=== PATIENT | female | born 1975 | race African-American/Black ===

== ENCOUNTER 2017-07-04 21:38 | Inpatient (IN) | payer OTHER ==
[~2017-07-04] VITALS: Ht 162.6 cm; Wt 52.2 kg
[~2017-07-04 21:38] MED LIST: LEVAQUIN500 MG ORAL; NKM
[2017-07-04] MEDS ORDERED: HYDROmorphone 1mg/ml Carpuject IVP ONE (22:15)
[2017-07-04 22:32] LABS: APPEARANCE,URINE CLEAR; KETONES,URINE NEGATIVE (NEGATIVE); LEUKOCYTE ESTERASE ,URINE 3+ (NEGATIVE); NITRITE,URINE POSITIVE (NEGATIVE); PH,URINE 7 (4.5-8.0); PROTEIN,URINE 2+ (NEGATIVE); UROBILINOGEN,URINE NORMAL MG/DL (0.0-1.0)
[2017-07-04 22:44] LABS: BACTERIA,URINE MODERATE /HPF; SQUAMOUS EPITHELIAL CELL,UR FEW /LPF (NONE/OCC)
[2017-07-04 22:45] LABS: AMORPHOUS SEDIMENT,UR FEW /LPF
[2017-07-04 22:50] LABS: BASOPHILS % (AUTO) 1.7 % (0.0-2.0); EOSINOPHILS % (AUTO) 2.1 % (0.0-3.0); LYMPHOCYTES % (AUTO) 42.3 % (20.0-45.0); MEAN CORPUSCULAR HGB CONC 34.5 G/DL (32.0-36.0); MEAN CORPUSCULAR VOLUME 81 FL (80-99); MEAN PLATELET VOLUME 7.1 FL (6.5-10.1); MONOCYTES % (AUTO) 15.9 % (1.0-10.0); PLATELET COUNT 217 K/UL (150-450); RED BLOOD COUNT 3.97 M/UL (4.20-5.40); RED CELL DISTRIBUTION WIDTH 15.6 % (11.6-14.8); WHITE BLOOD COUNT 5.1 K/UL (4.8-10.8)
[2017-07-04 22:56] LABS: PROTHROMBIN TIME 10.4 SEC (9.30-11.50)
[2017-07-04 22:59] LABS: ALBUMIN/GLOBULIN RATIO 1.3 (1.0-2.7); CALCIUM 9.5 mg/dL (8.6-10.2); CREATININE 1.2 mg/dL (0.5-0.9); GLOMERULAR FILTRATION RATE 59.8 mL/min (>60); TOTAL PROTEIN 7.9 g/dL (6.6-8.7)
[2017-07-05] VITALS (9 sets, daily range): BP systolic 135–170; BP diastolic 75–97
--- NOTE | 2017-07-05 02:05 | Emergency Room Report ---
History of Present Illness General Chief Complaint: Back Pain-No Injury Source: Patient Present Illness HPI Is a 42-year-old female with a history of a staghorn calculus. She presents with left flank pain for the last 2 weeks it worse the last couple days. Subjective fever chills. Has nausea but no vomiting. No diarrhea. Worse with urination. pain is 9/10. Allergies: Coded Allergies: NO KNOWN ALLERGIES (Unverified Allergy, Unknown, 10/24/15) Patient History Past Medical History: see triage record, old chart reviewed Past Surgical History: other Pertinent Family History: none Social History: Denies: smoking Last Menstrual Period: 06/13/17 Now: No Immunizations: other Reviewed Nursing Documentation: PMH: Agreed, PSxH: Agreed Nursing Documentation-PMH Hx Hypertension: Yes Hx Cancer: No Hx Gastrointestinal Problems: No Hx Neurological Problems: No Review of Systems Eye: Denies: eye pain, blurred vision ENT: Denies: ear pain, nose congestion, throat swelling Respiratory: Denies: cough, shortness of breath Cardiovascular: Denies: chest pain, palpitations Gastrointestinal: Denies: abdominal pain, diarrhea, nausea, vomiting Genitourinary: Reports: dysuria, frequency, pain Musculoskeletal: Denies: back pain, joint pain Skin: Denies: rash Neurological: Denies: headache, numbness Endocrine: Denies: increased thirst, increased urine Hematologic/Lymphatic: Denies: easy bruising All Other Systems: negative except mentioned in HPI Physical Exam Vital Signs Date Time Temp Pulse Resp B/P (MAP) Pulse Ox O2 Delivery O2 Flow Rate FiO2 07/04/17 21:55 98.1 60 18 150/87 100 Room Air vitals with high blood pressure Sp02 EP Interpretation: reviewed, normal General Appearance: well appearing, no apparent distress, alert Head: normocephalic, atraumatic Eyes: bilateral eye PERRL, bilateral eye EOMI ENT: hearing grossly normal, normal pharynx Neck: full range of motion, supple, no meningismus Respiratory: chest non-tender, lungs clear, normal breath sounds Cardiovascular #1: regular rate, rhythm, no murmur Gastrointestinal: normal bowel sounds, non tender, no mass, no organomegaly, no bruit, non-distended Genitourinary: CVA tenderness (L) Musculoskeletal: back normal, gait/station normal, normal range of motion Psychiatric: mood/affect normal Skin: warm/dry Medical Decision Making Diagnostic Impression: Primary Impression: Pyelonephritis Additional Impressions: Staghorn kidney stones Anemia Qualified Codes: D64.9 - Anemia, unspecified Proteinuria Qualified Codes: R80.9 - Proteinuria, unspecified ER Course Is a 42-year-old female who has pyelonephritis. She also has a large staghorn Was in the left renal collecting system. Will admit for IV antibiotics and pain control. Because of insurance, will admit to Dr. Miranda. No evidence of sepsis, abscess, acute renal failure to name a few. Lab Results Impression labs unremarkable CT/MRI/US Diagnostic Results CT/MRI/US Diagnostic Results : Imaging Test Ordered: CT abdomen and pelvis Impression Read by radiologist. Large, 7.5 cm staghorn calculus in the left renal collecting system with changes of pyelonephritis. Last Vital Signs Date Time Temp Pulse Resp B/P (MAP) Pulse Ox O2 Delivery O2 Flow Rate FiO2 07/05/17 00:12 98.0 88 18 144/88 100 Room Air Status: improved Disposition: ADMITTED INPATIENT Condition: Serious Referrals: NOT CHOSEN MESHA/,REFERRING (PCP) MARGARITA LO M.D. Jul 05, 2017 02:05
[2017-07-05] MEDS ORDERED: IBUPROFEN600 MG ORAL (03:33)
[2017-07-05] MEDS ORDERED: Nitroglycerin Subl 0.4mg tab (Bottle Of 25) SL PRN (07:00)
[2017-07-05] MEDS ORDERED: Morphine Sulfate 2mg/ml Inj IV PRN (07:00)
[2017-07-05] MEDS ORDERED: Miralax 17gm pkt ORAL PRN (07:00)
[2017-07-05] MEDS ORDERED: Morphine Sulfate 2mg/ml Inj IVP PRN (07:00)
[2017-07-05] MEDS ORDERED: Mylanta II UD 30ml ORAL PRN (07:00)
[2017-07-05] MEDS: Heparin 5000 units/ml inj SUBQ SCH ×2 (08:56→20:52)
--- NOTE | 2017-07-05 09:16 | Diagnostic Imaging Report ---
Indication: Abdominal pain Technique: Continuous helical transaxial imaging of the abdomen and pelvis was obtained from the lung bases to the pubic symphysis. No intravenous contrast was administered. Coronal 2-D reformats were also obtained. Total Dose length Product (DLP): [address] Dose Index Volume (CTDIvol): 10 mGy Comparison: 10/24/15 Findings: Was again there is a very large left staghorn calculus noted. Enlargement of the left kidney with areas of low attenuation representing dilated calyces. There is thinning of portions of the left renal cortex in association with a large staghorn calculus which is likely chronic obstructive. The findings are not significant change compared to last study. There is a relative paucity of intra-abdominal fat. The right kidney is unremarkable. Normal retrocecal appendix is noted. The uterus is demonstrated with triangular low attenuation central focus likely representing the endometrium. This is not evaluated well. The ovaries are not seen. Bladder and gallbladder are nondistended. Solid organs are not adequately evaluated without IV contrast. Impression: Limited study demonstrating a large left staghorn calculus with signs of chronic obstruction including distended calyces and cortical atrophy without significant change from the prior study. No obvious free fluid [facility] has communicated the preliminary results to the Emergency Department. Their findings are largely concordant with this report. The CT scanner at [facility] is accredited by the [employer] and the scans are performed using dose optimization techniques as appropriate to a performed exam including Automatic Exposure control.
[2017-07-05] MEDS: D5 1/2NS 1,000 ML IV SCH ×2 (09:48→23:24)
[2017-07-05] MEDS: cefTRIAXone 1 GM in D5W 55 ML IVPB SCH (09:49)
[2017-07-05 11:31] LABS: APPEARANCE,URINE TURBID; KETONES,URINE 1+ (NEGATIVE); LEUKOCYTE ESTERASE ,URINE 3+ (NEGATIVE); NITRITE,URINE POSITIVE (NEGATIVE); PH,URINE 7 (4.5-8.0); PROTEIN,URINE 1+ (NEGATIVE); UROBILINOGEN,URINE NORMAL MG/DL (0.0-1.0)
[2017-07-05 11:45] LABS: BACTERIA,URINE FEW /HPF; SQUAMOUS EPITHELIAL CELL,UR FEW /LPF (NONE/OCC); WBC,URINE 60-80 /HPF (0 - 2)
--- NOTE | 2017-07-05 20:32 | Consultation ---
Consult Note Consult Note [id number] PRESTON CARRION M.D. Jul 05, 2017 20:32
--- NOTE | 2017-07-05 22:44 | History and Physical ---
History of Present Illness General Date patient seen: Jul 05, 2017 Reason for Hospitalization: Back Pain-No Injury Present Illness Allergies: Coded Allergies: NO KNOWN ALLERGIES (Unverified Allergy, Unknown, 10/24/15) Medication History Scheduled Levofloxacin* (Levaquin*), 500 MG ORAL DAILY Scheduled PRN Ibuprofen* (Motrin*), 400 MG ORAL Q8HR PRN for For Pain, (Reported) Patient History Healthcare decision maker Resuscitation status Full Code Advanced Directive on File Physical Exam Last 24 Hour Vital Signs Date Time Temp Pulse Resp B/P (MAP) Pulse Ox O2 Delivery O2 Flow Rate FiO2 07/05/17 20:00 98.1 62 18 170/97 100 Room Air 07/05/17 18:01 52 147/78 07/05/17 16:15 97.5 55 21 160/93 97 Room Air 07/05/17 12:00 98.8 59 21 157/90 95 Room Air 07/05/17 08:15 97.7 66 21 135/83 97 Room Air 07/05/17 04:00 97.0 61 18 135/75 100 Room Air 07/05/17 03:18 98.0 88 18 138/89 100 Room Air 07/05/17 02:30 98.0 88 18 144/88 100 Room Air 07/05/17 00:12 98.0 88 18 144/88 100 Room Air 07/04/17 22:47 98.0 Intake and Output 07/05/17 07/06/17 19:00 07:00 Intake Total 635 ml Balance 635 ml Intake Oral 0 ml IV Total 635 ml # Voids 1 # Bowel Movements 1 Laboratory Tests Test 07/05/17 09:11 Urine Color Pale yellow Urine Appearance Turbid Urine pH 7 (4.5-8.0) Urine Specific [place] 1.005 (1.005-1.035) Urine Protein 1+ (NEGATIVE) H Urine Glucose (UA) Negative (NEGATIVE) Urine Ketones 1+ (NEGATIVE) H Urine Occult Blood 4+ (NEGATIVE) H Urine Nitrite Positive (NEGATIVE) H Urine Bilirubin Negative (NEGATIVE) Urine Urobilinogen Normal MG/DL (0.0-1.0) Urine Leukocyte Esterase 3+ (NEGATIVE) H Urine RBC 10-15 /HPF (0 - 2) H Urine WBC 60-80 /HPF (0 - 2) H Urine Squamous Epithelial Cells Few /LPF (NONE/OCC) Urine Bacteria Few /HPF (NONE) Height (Feet): 5 Height (Inches): 4.00 Weight (Pounds): 115 Medications Current Medications Medications (Trade) Dose Ordered Sig/Richard Route PRN Reason Start Time Stop Time Status Last Admin Dose Admin Acetaminophen (Tylenol) 650 mg Q4H PRN ORAL fever 07/05/17 07:00 08/04/17 06:59 Al Hydroxide/Mg Hydroxide (Mylanta II) 30 ml Q6H PRN ORAL dyspepsia 07/05/17 07:00 08/04/17 06:59 Ceftriaxone Sodium 1 gm/ Dextrose 55 ml @ 110 mls/hr Q24H IVPB 07/05/17 09:00 07/12/17 08:59 07/05/17 09:49 Dextrose (Dextrose 50%) STAT PRN IV Hypoglycemia 07/05/17 07:00 08/04/17 06:59 Dextrose/Sodium Chloride 1,000 ml @ 75 mls/hr [id number] IV 07/05/17 17:40 08/04/17 17:39 07/05/17 09:48 Diphenhydramine HCl (Benadryl) 25 mg Q6H PRN ORAL Itching/Pruritis 07/05/17 07:00 08/04/17 06:59 Heparin Sodium (Porcine) (Heparin 5000 units/ml) 5,000 units EVERY 12 HOURS SUBQ 07/05/17 09:00 08/04/17 08:59 07/05/17 20:52 Ibuprofen (Advil) 400 mg Q8HR PRN ORAL For Pain 07/05/17 07:00 08/04/17 06:59 Morphine Sulfate (Morphine Sulfate) 2 mg EVERY 4 HOURS PRN IVP severe Pain (Pain Scale 4-6) 07/05/17 07:00 07/12/17 06:59 Morphine Sulfate (Morphine Sulfate) 4 mg EVERY 2 HOURS PRN IV For Pain (7-10) 07/05/17 07:00 07/12/17 06:59 Nitroglycerin (Ntg) 0.4 mg Q5M X 3 DOSES PRN SL Prn Chest Pain 07/05/17 07:00 08/04/17 06:59 Ondansetron HCl (Zofran) 4 mg Q6H PRN IVP Nausea & Vomiting 07/05/17 07:00 08/04/17 06:59 Polyethylene Glycol (Miralax) 17 gm HSPRN PRN ORAL Constipation 07/05/17 07:00 08/04/17 06:59 Temazepam (Restoril) 15 mg HSPRN PRN ORAL Insomnia 07/05/17 07:00 07/12/17 06:59 MARK HUITRON Jul 05, 2017 22:44
[2017-07-06 04:00] VITALS: BP 162/90
[2017-07-06 07:01] LABS: MEAN CORPUSCULAR HGB CONC 33.2 G/DL (32.0-36.0); MEAN CORPUSCULAR VOLUME 82 FL (80-99); PLATELET COUNT 187 K/UL (150-450); RED BLOOD COUNT 4.01 M/UL (4.20-5.40); RED CELL DISTRIBUTION WIDTH 15.4 % (11.6-14.8); WHITE BLOOD COUNT 3.9 K/UL (4.8-10.8)
[2017-07-06 07:10] LABS: ALANINE AMINOTRANSFERASE 22 U/L (3-33); ALBUMIN/GLOBULIN RATIO 1.2 (1.0-2.7); AMYLASE 77 U/L (10-110); ANION GAP 12 (5-15); ASPARTATE AMINO TRANSFERASE 27 U/L (5-40); CALCIUM 9.2 mg/dL (8.6-10.2); CARBON DIOXIDE 26 mEQ/L (20-30); CHLORIDE 104 mEQ/L (98-107); CREATININE 0.9 mg/dL (0.5-0.9); GLOMERULAR FILTRATION RATE > 60 mL/min (>60); HEMOLYSIS 0; LIPASE 17 U/L (< 60); POTASSIUM 3.7 mEQ/L (3.4-4.9); SODIUM 142 mEQ/L (135-145); TOTAL PROTEIN 6.9 g/dL (6.6-8.7)
[2017-07-06 08:15] VITALS: BP 155/96
[2017-07-06] MEDS: Heparin 5000 units/ml inj SUBQ SCH ×2 (08:38→20:56)
[2017-07-06] MEDS: cefTRIAXone 1 GM in D5W 55 ML IVPB SCH (08:38)
[2017-07-06 09:14] LABS: LYMPHOCYTES % (MANUAL) 68 % (20-45); NEUTROPHILS % (MANUAL) 22 % (45-75); TOTAL CELLS COUNTED 100
[2017-07-06 09:15] LABS: ANISOCYTOSIS 1+; BAND NEUTROPHILS % (MANUAL) 0 % (0-8); BASOPHILS % (MANUAL) 0 % (0-2); EOSINOPHILS % (MANUAL) 0 % (0-3); HYPOCHROMASIA 1+; PLATELET ESTIMATE ADEQUATE; PLATELET MORPHOLOGY NORMAL
[2017-07-06 12:11] VITALS: BP 161/90
--- NOTE | 2017-07-06 14:03 | Consultation ---
DATE OF CONSULTATION: INFECTIOUS DISEASES CONSULT CONSULTING PHYSICIAN: Haim Wilkinson M.D. REFERRING PHYSICIAN: Katerina Miranda M.D. REASON FOR CONSULTATION: Evaluation of the patient for UTI and antibiotic management. HISTORY OF PRESENT ILLNESS: The patient is a 42-year-old female with multiple medical problems as listed below, who has been admitted to this medical center due to dysuria. The patient was admitted with the impression of urinary tract infection. An Infectious Diseases consultation has been requested for further evaluation of the patient's antibiotic management. The patient is complaining of having left-sided flank tenderness. PAST MEDICAL HISTORY: 1. History of pyelonephritis in the past. 2. History of left staghorn kidney. 3. History of renal colic. 4. History of multiple urinary tract infections. MEDICATIONS: On IV Rocephin. ALLERGIES: No known drug allergies. SOCIAL HISTORY: Negative for alcohol or drug use except using recreational marijuana. FAMILY HISTORY: Noncontributory. REVIEW OF SYSTEMS: A 10-point review was done and except what is mentioned above has been negative. PHYSICAL EXAMINATION: VITAL SIGNS: Temperature 98.1 degrees, blood pressure 170/97, pulse 86, and respiratory rate 18. HEENT: No pale conjunctivae. No icterus. NECK: No lymphadenopathy. CHEST: Clear. HEART: S1 and S2. ABDOMEN: Soft. The patient has mild left flank tenderness. EXTREMITIES: No cyanosis at this time. NEUROLOGIC: Awake and alert. LABORATORY AND DIAGNOSTIC DATA: White blood cells 5, hemoglobin 11, and platelets 217,000. UA, 60 to 80 white blood cells, 10 to 15 red blood cells. BUN 11 and creatinine 1.2. ALT, AST, and alkaline phosphatase are unremarkable. Cultures are pending. CT of the abdomen with pelvis showed a large left obstruction. ASSESSMENT: The patient is a 42-year-old female, who came to the hospital with a chief complaint of left flank tenderness and dysuria, possible urinary tract infection and superimposing the patient's renal colic. The patient would benefit from antibiotic treatment. Also, rule out bacteremia. PLAN: 1. We will continue the patient on IV Rocephin. 2. Monitor CBC. 3. Monitor BMP. 4. Monitor cultures (blood and urine). 5. We will recommend Urology recommendation for further evaluation and intervention. 6. Based on the patient's clinical course and labs, we will do further recommendations. Thank you, Dr. Miranda, for allowing me to participate in the care of this patient. I will follow the patient with you during this hospitalization. Haim Wilkinson M.D. DR: JUANITA JOB#: [id number] CC:
--- NOTE | 2017-07-06 14:39 | Pulmonology Progress Note ---
Assessment/Plan Problems: (1) Staghorn kidney stones (2) Pyelonephritis Assessment/Plan iv abx cultures pending urology called dc when ok with ID and urology Subjective ROS Limited/Unobtainable: No Interval Events: no new complains Allergies: Coded Allergies: NO KNOWN ALLERGIES (Unverified Allergy, Unknown, 10/24/15) Objective Last 24 Hour Vital Signs Date Time Temp Pulse Resp B/P (MAP) Pulse Ox O2 Delivery O2 Flow Rate FiO2 07/06/17 13:28 161/90 07/06/17 12:11 97.7 55 20 161/90 97 Room Air 07/06/17 08:15 97.9 58 21 155/96 97 Room Air 07/06/17 04:00 97.7 50 19 162/90 100 Room Air 07/05/17 23:00 160/88 07/05/17 20:00 98.1 62 18 170/97 100 Room Air 07/05/17 18:01 52 147/78 07/05/17 16:15 97.5 55 21 160/93 97 Room Air Intake and Output 07/06/17 07/07/17 19:00 07:00 Intake Total 480 ml Balance 480 ml Intake Oral 480 ml General Appearance: WD/WN HEENT: normocephalic, atraumatic Respiratory/Chest: chest wall non-tender, lungs clear Breasts: no masses Cardiovascular: normal peripheral pulses, normal rate Abdomen: normal bowel sounds, soft, non tender, no organomegaly Extremities: no clubbing Skin: no rash Microbiology Date/Time Source Procedure Growth Status 07/05/17 09:11 Straight Cath Urine Culture - Preliminary NO GROWTH Resulted 07/04/17 22:00 Urine,Clean Catch Urine Culture - Preliminary Resulted Laboratory Tests 07/06/17 05:40: White Blood Count 3.9L, Red Blood Count 4.01L, Hemoglobin 10.8L, Hematocrit 32.7L, Mean Corpuscular Volume 82, Mean Corpuscular Hemoglobin 27.0, Mean Corpuscular Hemoglobin Concent 33.2, Red Cell Distribution Width 15.4H, Platelet Count 187, Mean Platelet Volume 7.0, Neutrophils (%) (Auto) , Lymphocytes (%) (Auto) , Monocytes (%) (Auto) , Eosinophils (%) (Auto) , Basophils (%) (Auto) , Differential Total Cells Counted 100, Neutrophils % ( Manual) 22L, Lymphocytes % (Manual) 68H, Monocytes % (Manual) 10, Eosinophils % (Manual) 0, Basophils % (Manual) 0, Band Neutrophils 0, Platelet Estimate Adequate, Platelet Morphology Normal, Hypochromasia 1+, Anisocytosis 1+, Activated Partial Thromboplast Time 26, Sodium Level 142, Potassium Level 3.7, Chloride Level 104, Carbon Dioxide Level 26, Anion Gap 12, Blood Urea Nitrogen 6L, Creatinine 0.9, Estimat Glomerular Filtration Rate > 60, Glucose Level 91, Calcium Level 9.2, Total Bilirubin 0.4, Aspartate Amino Transf (AST/SGOT) 27, Alanine Aminotransferase (ALT/SGPT) 22, Alkaline Phosphatase 47, Total Protein 6.9, Albumin 3.8, Globulin 3.1, Albumin/Globulin Ratio 1.2, Amylase Level 77, Lipase 17 Current Medications Medications (Trade) Dose Ordered Sig/Richard Route PRN Reason Start Time Stop Time Status Last Admin Dose Admin Acetaminophen (Tylenol) 650 mg Q4H PRN ORAL fever 07/05/17 07:00 08/04/17 06:59 Al Hydroxide/Mg Hydroxide (Mylanta II) 30 ml Q6H PRN ORAL dyspepsia 07/05/17 07:00 08/04/17 06:59 Ceftriaxone Sodium 1 gm/ Dextrose 55 ml @ 110 mls/hr Q24H IVPB 07/05/17 09:00 07/12/17 08:59 07/06/17 08:38 Clonidine HCl (Catapres) 0.1 mg Q4H PRN ORAL For High Blood Pressure 07/06/17 07:00 08/05/17 06:59 07/06/17 13:28 Dextrose (Dextrose 50%) STAT PRN IV Hypoglycemia 07/05/17 07:00 08/04/17 06:59 Dextrose/Sodium Chloride 1,000 ml @ 75 mls/hr [id number] IV 07/05/17 17:40 08/04/17 17:39 07/05/17 23:24 Diphenhydramine HCl (Benadryl) 25 mg Q6H PRN ORAL Itching/Pruritis 07/05/17 07:00 08/04/17 06:59 Heparin Sodium (Porcine) (Heparin 5000 units/ml) 5,000 units EVERY 12 HOURS SUBQ 07/05/17 09:00 08/04/17 08:59 07/06/17 08:38 Ibuprofen (Advil) 400 mg Q8HR PRN ORAL For Pain 07/05/17 07:00 08/04/17 06:59 07/05/17 23:21 Morphine Sulfate (Morphine Sulfate) 2 mg EVERY 4 HOURS PRN IVP severe Pain (Pain Scale 4-6) 07/05/17 07:00 07/12/17 06:59 Morphine Sulfate (Morphine Sulfate) 4 mg EVERY 2 HOURS PRN IV For Pain (7-10) 07/05/17 07:00 07/12/17 06:59 Nitroglycerin (Ntg) 0.4 mg Q5M X 3 DOSES PRN SL Prn Chest Pain 07/05/17 07:00 08/04/17 06:59 Ondansetron HCl (Zofran) 4 mg Q6H PRN IVP Nausea & Vomiting 07/05/17 07:00 08/04/17 06:59 Polyethylene Glycol (Miralax) 17 gm HSPRN PRN ORAL Constipation 07/05/17 07:00 08/04/17 06:59 Temazepam (Restoril) 15 mg HSPRN PRN ORAL Insomnia 07/05/17 07:00 07/12/17 06:59 MARK HUITRON Jul 06, 2017 14:39
[2017-07-06 15:32] VITALS: BP 156/96
--- NOTE | 2017-07-06 18:05 | Infectious Diseases Prog Note ---
Subjective Allergies: Coded Allergies: NO KNOWN ALLERGIES (Unverified Allergy, Unknown, 10/24/15) Objective Vital Signs Last 24 Hour Vital Signs Date Time Temp Pulse Resp B/P (MAP) Pulse Ox O2 Delivery O2 Flow Rate FiO2 07/06/17 16:02 64 156/96 07/06/17 15:32 97.9 64 21 156/96 100 Room Air 07/06/17 13:28 161/90 07/06/17 12:11 97.7 55 20 161/90 97 Room Air 07/06/17 08:15 97.9 58 21 155/96 97 Room Air 07/06/17 04:00 97.7 50 19 162/90 100 Room Air 07/05/17 23:00 160/88 07/05/17 20:00 98.1 62 18 170/97 100 Room Air Height (Feet): 5 Height (Inches): 4.00 Weight (Pounds): 115 Microbiology Date/Time Source Procedure Growth Status 07/05/17 09:11 Straight Cath Urine Culture - Preliminary NO GROWTH Resulted 07/04/17 22:00 Urine,Clean Catch Urine Culture - Preliminary Resulted Laboratory Tests Test 07/06/17 05:40 White Blood Count 3.9 K/UL (4.8-10.8) L Red Blood Count 4.01 M/UL (4.20-5.40) L Hemoglobin 10.8 G/DL (12.0-16.0) L Hematocrit 32.7 % (37.0-47.0) L Mean Corpuscular Volume 82 FL (80-99) Mean Corpuscular Hemoglobin 27.0 PG (27.0-31.0) Mean Corpuscular Hemoglobin Concent 33.2 G/DL (32.0-36.0) Red Cell Distribution Width 15.4 % (11.6-14.8) H Platelet Count 187 K/UL (150-450) Mean Platelet Volume 7.0 FL (6.5-10.1) Neutrophils (%) (Auto) % (45.0-75.0) Lymphocytes (%) (Auto) % (20.0-45.0) Monocytes (%) (Auto) % (1.0-10.0) Eosinophils (%) (Auto) % (0.0-3.0) Basophils (%) (Auto) % (0.0-2.0) Differential Total Cells Counted 100 Neutrophils % (Manual) 22 % (45-75) L Lymphocytes % (Manual) 68 % (20-45) H Monocytes % (Manual) 10 % (1-10) Eosinophils % (Manual) 0 % (0-3) Basophils % (Manual) 0 % (0-2) Band Neutrophils 0 % (0-8) Platelet Estimate Adequate Platelet Morphology Normal Hypochromasia 1+ Anisocytosis 1+ Activated Partial Thromboplast Time 26 SEC (23-33) Sodium Level 142 mEQ/L (135-145) Potassium Level 3.7 mEQ/L (3.4-4.9) Chloride Level 104 mEQ/L (98-107) Carbon Dioxide Level 26 mEQ/L (20-30) Anion Gap 12 (5-15) Blood Urea Nitrogen 6 mg/dL (7-23) L Creatinine 0.9 mg/dL (0.5-0.9) Estimat Glomerular Filtration Rate > 60 mL/min (>60) Glucose Level 91 mg/dL (74-106) Calcium Level 9.2 mg/dL (8.6-10.2) Total Bilirubin 0.4 mg/dL (0.0-1.2) Aspartate Amino Transf (AST/SGOT) 27 U/L (5-40) Alanine Aminotransferase (ALT/SGPT) 22 U/L (3-33) Alkaline Phosphatase 47 U/L (35-104) Total Protein 6.9 g/dL (6.6-8.7) Albumin 3.8 g/dL (3.5-5.2) Globulin 3.1 g/dL Albumin/Globulin Ratio 1.2 (1.0-2.7) Amylase Level 77 U/L (10-110) Lipase 17 U/L (< 60) Current Medications Medications (Trade) Dose Ordered Sig/Richard Route PRN Reason Start Time Stop Time Status Last Admin Dose Admin Acetaminophen (Tylenol) 650 mg Q4H PRN ORAL fever 07/05/17 07:00 08/04/17 06:59 Al Hydroxide/Mg Hydroxide (Mylanta II) 30 ml Q6H PRN ORAL dyspepsia 07/05/17 07:00 08/04/17 06:59 Amlodipine Besylate (Norvasc) 5 mg EVERY 12 HOURS ORAL 07/06/17 15:00 08/05/17 14:59 07/06/17 16:02 Ceftriaxone Sodium 1 gm/ Dextrose 55 ml @ 110 mls/hr Q24H IVPB 07/05/17 09:00 07/12/17 08:59 07/06/17 08:38 Clonidine HCl (Catapres) 0.1 mg Q4H PRN ORAL For High Blood Pressure 07/06/17 07:00 08/05/17 06:59 07/06/17 13:28 Dextrose (Dextrose 50%) STAT PRN IV Hypoglycemia 07/05/17 07:00 08/04/17 06:59 Dextrose/Sodium Chloride 1,000 ml @ 75 mls/hr [id number] IV 07/05/17 17:40 08/04/17 17:39 07/05/17 23:24 Diphenhydramine HCl (Benadryl) 25 mg Q6H PRN ORAL Itching/Pruritis 07/05/17 07:00 08/04/17 06:59 Heparin Sodium (Porcine) (Heparin 5000 units/ml) 5,000 units EVERY 12 HOURS SUBQ 07/05/17 09:00 08/04/17 08:59 07/06/17 08:38 Ibuprofen (Advil) 400 mg Q8HR PRN ORAL For Pain 07/05/17 07:00 08/04/17 06:59 07/05/17 23:21 Morphine Sulfate (Morphine Sulfate) 2 mg EVERY 4 HOURS PRN IVP severe Pain (Pain Scale 4-6) 07/05/17 07:00 07/12/17 06:59 Morphine Sulfate (Morphine Sulfate) 4 mg EVERY 2 HOURS PRN IV For Pain (7-10) 07/05/17 07:00 07/12/17 06:59 Nitroglycerin (Ntg) 0.4 mg Q5M X 3 DOSES PRN SL Prn Chest Pain 07/05/17 07:00 08/04/17 06:59 Ondansetron HCl (Zofran) 4 mg Q6H PRN IVP Nausea & Vomiting 07/05/17 07:00 08/04/17 06:59 Polyethylene Glycol (Miralax) 17 gm HSPRN PRN ORAL Constipation 07/05/17 07:00 08/04/17 06:59 Temazepam (Restoril) 15 mg HSPRN PRN ORAL Insomnia 07/05/17 07:00 9/5/17 06:59 PRESTON CARRION M.D. Jul 06, 2017 18:05
[2017-07-06 20:39] VITALS: BP 148/79
[2017-07-06] MEDS: D5 1/2NS 1,000 ML IV SCH (20:49)
--- NOTE | 2017-07-06 21:27 | Infectious Diseases Prog Note ---
Assessment/Plan Assessment/Plan A: UTI left flank tenderness and dysuria Ro bacteremia. History of pyelonephritis in the past. History of left staghorn kidney. History of renal colic. History of multiple urinary tract infections. PLAN: will continue the patient on IV Rocephin d# 2 / , plan of DC depends on the final UCx report Monitor CBC Monitor BMP. Monitor cultures (blood and urine). Urology recommendation fup : P Subjective Constitutional: Denies: no symptoms, fever, chills, fatigue, anorexia, drenching sweats, other Allergies: Coded Allergies: NO KNOWN ALLERGIES (Unverified Allergy, Unknown, 10/24/15) Objective Vital Signs Last 24 Hour Vital Signs Date Time Temp Pulse Resp B/P (MAP) Pulse Ox O2 Delivery O2 Flow Rate FiO2 07/06/17 20:50 65 148/79 07/06/17 20:39 97.9 65 18 148/79 100 Room Air 07/06/17 16:02 64 156/96 07/06/17 15:32 97.9 64 21 156/96 100 Room Air 07/06/17 13:28 161/90 07/06/17 12:11 97.7 55 20 161/90 97 Room Air 07/06/17 08:15 97.9 58 21 155/96 97 Room Air 07/06/17 04:00 97.7 50 19 162/90 100 Room Air 07/05/17 23:00 160/88 Height (Feet): 5 Height (Inches): 4.00 Weight (Pounds): 115 HEENT: anicteric Respiratory/Chest: no respiratory distress Cardiovascular: regularly irregular Abdomen: no organomegaly Microbiology Date/Time Source Procedure Growth Status 07/05/17 09:11 Straight Cath Urine Culture - Preliminary NO GROWTH Resulted 07/04/17 22:00 Urine,Clean Catch Urine Culture - Preliminary Resulted Laboratory Tests Test 07/06/17 05:40 White Blood Count 3.9 K/UL (4.8-10.8) L Red Blood Count 4.01 M/UL (4.20-5.40) L Hemoglobin 10.8 G/DL (12.0-16.0) L Hematocrit 32.7 % (37.0-47.0) L Mean Corpuscular Volume 82 FL (80-99) Mean Corpuscular Hemoglobin 27.0 PG (27.0-31.0) Mean Corpuscular Hemoglobin Concent 33.2 G/DL (32.0-36.0) Red Cell Distribution Width 15.4 % (11.6-14.8) H Platelet Count 187 K/UL (150-450) Mean Platelet Volume 7.0 FL (6.5-10.1) Neutrophils (%) (Auto) % (45.0-75.0) Lymphocytes (%) (Auto) % (20.0-45.0) Monocytes (%) (Auto) % (1.0-10.0) Eosinophils (%) (Auto) % (0.0-3.0) Basophils (%) (Auto) % (0.0-2.0) Differential Total Cells Counted 100 Neutrophils % (Manual) 22 % (45-75) L Lymphocytes % (Manual) 68 % (20-45) H Monocytes % (Manual) 10 % (1-10) Eosinophils % (Manual) 0 % (0-3) Basophils % (Manual) 0 % (0-2) Band Neutrophils 0 % (0-8) Platelet Estimate Adequate Platelet Morphology Normal Hypochromasia 1+ Anisocytosis 1+ Activated Partial Thromboplast Time 26 SEC (23-33) Sodium Level 142 mEQ/L (135-145) Potassium Level 3.7 mEQ/L (3.4-4.9) Chloride Level 104 mEQ/L (98-107) Carbon Dioxide Level 26 mEQ/L (20-30) Anion Gap 12 (5-15) Blood Urea Nitrogen 6 mg/dL (7-23) L Creatinine 0.9 mg/dL (0.5-0.9) Estimat Glomerular Filtration Rate > 60 mL/min (>60) Glucose Level 91 mg/dL (74-106) Calcium Level 9.2 mg/dL (8.6-10.2) Total Bilirubin 0.4 mg/dL (0.0-1.2) Aspartate Amino Transf (AST/SGOT) 27 U/L (5-40) Alanine Aminotransferase (ALT/SGPT) 22 U/L (3-33) Alkaline Phosphatase 47 U/L (35-104) Total Protein 6.9 g/dL (6.6-8.7) Albumin 3.8 g/dL (3.5-5.2) Globulin 3.1 g/dL Albumin/Globulin Ratio 1.2 (1.0-2.7) Amylase Level 77 U/L (10-110) Lipase 17 U/L (< 60) Current Medications Medications (Trade) Dose Ordered Sig/Richard Route PRN Reason Start Time Stop Time Status Last Admin Dose Admin Acetaminophen (Tylenol) 650 mg Q4H PRN ORAL fever 07/05/17 07:00 08/04/17 06:59 Al Hydroxide/Mg Hydroxide (Mylanta II) 30 ml Q6H PRN ORAL dyspepsia 07/05/17 07:00 08/04/17 06:59 Amlodipine Besylate (Norvasc) 5 mg EVERY 12 HOURS ORAL 07/06/17 15:00 08/05/17 14:59 07/06/17 20:50 Ceftriaxone Sodium 1 gm/ Dextrose 55 ml @ 110 mls/hr Q24H IVPB 07/05/17 09:00 07/12/17 08:59 07/06/17 08:38 Clonidine HCl (Catapres) 0.1 mg Q4H PRN ORAL For High Blood Pressure 07/06/17 07:00 08/05/17 06:59 07/06/17 13:28 Dextrose (Dextrose 50%) STAT PRN IV Hypoglycemia 07/05/17 07:00 08/04/17 06:59 Dextrose/Sodium Chloride 1,000 ml @ 75 mls/hr [id number] IV 07/05/17 17:40 08/04/17 17:39 07/06/17 20:49 Diphenhydramine HCl (Benadryl) 25 mg Q6H PRN ORAL Itching/Pruritis 07/05/17 07:00 08/04/17 06:59 Heparin Sodium (Porcine) (Heparin 5000 units/ml) 5,000 units EVERY 12 HOURS SUBQ 07/05/17 09:00 08/04/17 08:59 07/06/17 20:56 Ibuprofen (Advil) 400 mg Q8HR PRN ORAL For Pain 07/05/17 07:00 08/04/17 06:59 07/05/17 23:21 Morphine Sulfate (Morphine Sulfate) 2 mg EVERY 4 HOURS PRN IVP severe Pain (Pain Scale 4-6) 07/05/17 07:00 07/12/17 06:59 Morphine Sulfate (Morphine Sulfate) 4 mg EVERY 2 HOURS PRN IV For Pain (7-10) 07/05/17 07:00 07/12/17 06:59 Nitroglycerin (Ntg) 0.4 mg Q5M X 3 DOSES PRN SL Prn Chest Pain 07/05/17 07:00 08/04/17 06:59 Ondansetron HCl (Zofran) 4 mg Q6H PRN IVP Nausea & Vomiting 07/05/17 07:00 08/04/17 06:59 Polyethylene Glycol (Miralax) 17 gm HSPRN PRN ORAL Constipation 07/05/17 07:00 08/04/17 06:59 Temazepam (Restoril) 15 mg HSPRN PRN ORAL Insomnia 07/05/17 07:00 07/12/17 06:59 PRESTON CARRION M.D. Jul 06, 2017 21:27
[2017-07-07 00:01] VITALS: BP 149/84
[2017-07-07 04:00] VITALS: BP 137/86
[2017-07-07 08:00] VITALS: BP 133/92
[2017-07-07] MEDS: Heparin 5000 units/ml inj SUBQ SCH (09:14)
[2017-07-07] MEDS: D5 1/2NS 1,000 ML IV SCH (09:16)
[2017-07-07] MEDS: cefTRIAXone 1 GM in D5W 55 ML IVPB SCH (09:16)
[2017-07-07 12:00] VITALS: BP 151/89
[2017-07-07] MEDS ORDERED: BACTRIM DS TAB1 EAC1 ORAL (14:17)
--- NOTE | 2017-07-07 15:04 | Infectious Diseases Prog Note ---
Assessment/Plan Assessment/Plan Assessment: UTI secondary to L sided chronic 7.5cm staghorn calculi present for >3 years. left flank tenderness and dysuria blood cx negative at 48 hrs for bacteremia. History of pyelonephritis in the past. Castillo sensitive Klebsiella in 2010, and ESBL E coli (sens to FQ and tmp/smx) in 2014, treated with cipro. 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 History of renal colic. History of multiple urinary tract infections. PLAN: on IV Rocephin d# 3 with good clinical response. ucx is negative so far, blood cx negative at 48 hrs. based on prior Ucx ( 2010, 2014), and 2015 FQ dosing, the most likely effective regimen is tmp/smx. Her SCr has normalized, and although tmp can inhibit prox tubule secretion of Cr, she should tolerate it fine now that her N/V has resolved and she's no longer dehydrated. Okay to switch to Bactrim DS one tab twice daily to complete 14 days of treatment. paper script provided to nurse. s/p urgent urology consultation. she'll need outpatient f/u non urgently to consider whether she should have renal mag lasix scan and then consider nephrectomy to reduce her risk of infections in the future. Subjective Constitutional: Reports: no symptoms Respiratory: Reports: no symptoms Cardiovascular: Reports: no symptoms Genitourinary: Reports: no symptoms Skin: Reports: no symptoms Musculoskeletal: Reports: no symptoms Allergies: Coded Allergies: NO KNOWN ALLERGIES (Unverified Allergy, Unknown, 10/24/15) Subjective patient feels better since admission with resolution of L sided flank pain and N /V. remains afebrile. tolerating PO. Objective Vital Signs Last 24 Hour Vital Signs Date Time Temp Pulse Resp B/P (MAP) Pulse Ox O2 Delivery O2 Flow Rate FiO2 07/07/17 12:00 97.9 86 20 151/89 100 Room Air 07/07/17 09:14 71 133/92 07/07/17 08:00 98.1 71 18 133/92 100 Room Air 07/07/17 04:00 97.9 65 18 137/86 100 Room Air 07/07/17 00:01 98.1 54 19 149/84 100 Room Air 07/06/17 20:50 65 148/79 07/06/17 20:39 97.9 65 18 148/79 100 Room Air 07/06/17 16:02 64 156/96 07/06/17 15:32 97.9 64 21 156/96 100 Room Air Height (Feet): 5 Height (Inches): 4.00 Weight (Pounds): 115 Objective HEENT: anicteric Respiratory/Chest: no respiratory distress Cardiovascular: regularly irregular Abdomen: no organomegaly. nttp. no residual L flank pain. ext: good skin turgor Microbiology Date/Time Source Procedure Growth Status 07/05/17 22:50 Blood Blood Culture - Preliminary NO GROWTH AFTER 24 HOURS Resulted 07/05/17 22:45 Blood Blood Culture - Preliminary NO GROWTH AFTER 24 HOURS Resulted 07/05/17 09:11 Straight Cath Urine Culture - Preliminary NO GROWTH AFTER 24 HOURS Resulted 07/04/17 22:00 Urine,Clean Catch Urine Culture - Preliminary Resulted RADIOLOGY Patient : Hank KIDD Referring Physician: ZANE BULL D.O. ID Number: [id number] Service Date: 10/24/15 : 1975 Report Date: 10/24/15 Gender: F Accession No.: [id number] Location: Procedure: CT Abdomen Pelvis WO Contrast CT Abdomen/Pelvis without Intravenous Contrast INDICATION: Abdominal pain COMPARISON: CT abdomen/pelvis from 05/22/12 TECHNIQUE: Serial axial images were obtained from the lung bases through the symphysis pubis. Coronal and sagittal reformats were obtained. Dose Estimate: Total DLP 485 mGycm CTD/vol 0.15, 9.87 mGy FINDINGS: Lack of intravenous and oral contrast compromises evaluation of the bowel and could obscure an isodense lesion. The visualized lung bases are clear. The heart is normal in size. The liver is normal in density and contour. There is no intra- or extrahepatic biliary ductal dilation. There is no gallbladder wall thickening or pericholecystic fluid. The spleen is normal in size. The pancreas is normal with no pancreatic ductal dilatation. The adrenal glands are normal. The right kidney is normal in size and contour with no evidence of obstruction. There are no right renal calculi. The left kidney is enlarged and abnormal in morphology. There is a large left renal staghorn calculus with 2 main fragments (approximately 1350 Hounsfield units), overall increased in size from the prior study. The calyces are markedly dilated, increased from the prior study. There is interval increase in left renal cortical thinning that is now moderate to severe. The stomach is collapsed. The small and large bowel are normally distended and thin-walled. There is no mesenteric or retroperitoneal lymphadenopathy. There is no intraperitoneal free air. There may be trace pelvic free fluid. The urinary bladder is within normal limits. The uterus is grossly unremarkable. There are no adnexal masses. The visualized aorta is normal in caliber. No suspicious osseous lesions. IMPRESSION: Interval increase in size of left renal staghorn calculus with grossly abnormal left kidney, marked calyceal dilatation, and moderate to severe renal cortical thinning, compatible with xanthogranulomatous pyelonephritis. Muscle trace pelvic free fluid, nonspecific. Patient : Hank KIDD Referring Physician: MARAGRITA LO M.D. ID Number: [id number] Service Date: 07/04/17 : 1975 Report Date: 07/04/17 Gender: F Accession No.: [id number] Location: Procedure: CT Abdomen Pelvis WO Contrast Indication: Abdominal pain Technique: Continuous helical transaxial imaging of the abdomen and pelvis was obtained from the lung bases to the pubic symphysis. No intravenous contrast was administered. Coronal 2-D reformats were also obtained. Total Dose length Product (DLP): [address] Dose Index Volume (CTDIvol): 10 mGy Comparison: 10/24/15 Findings: Was again there is a very large left staghorn calculus noted. Enlargement of the left kidney with areas of low attenuation representing dilated calyces. There is thinning of portions of the left renal cortex in association with a large staghorn calculus which is likely chronic obstructive. The findings are not significant change compared to last study. There is a relative paucity of intra-abdominal fat. The right kidney is unremarkable. Normal retrocecal appendix is noted. The uterus is demonstrated with triangular low attenuation central focus likely representing the endometrium. This is not evaluated well. The ovaries are not seen. Bladder and gallbladder are nondistended. Solid organs are not adequately evaluated without IV contrast. Impression: Limited study demonstrating a large left staghorn calculus with signs of chronic obstruction including distended calyces and cortical atrophy without significant change from the prior study. No obvious free fluid Current Medications Medications (Trade) Dose Ordered Sig/Richard Route PRN Reason Start Time Stop Time Status Last Admin Dose Admin Acetaminophen (Tylenol) 650 mg Q4H PRN ORAL fever 07/05/17 07:00 08/04/17 06:59 Al Hydroxide/Mg Hydroxide (Mylanta II) 30 ml Q6H PRN ORAL dyspepsia 07/05/17 07:00 08/04/17 06:59 Amlodipine Besylate (Norvasc) 5 mg EVERY 12 HOURS ORAL 07/06/17 15:00 08/05/17 14:59 07/07/17 09:14 Ceftriaxone Sodium 1 gm/ Dextrose 55 ml @ 110 mls/hr Q24H IVPB 07/05/17 09:00 07/12/17 08:59 07/07/17 09:16 Clonidine HCl (Catapres) 0.1 mg Q4H PRN ORAL For High Blood Pressure 07/06/17 07:00 08/05/17 06:59 07/06/17 13:28 Dextrose (Dextrose 50%) STAT PRN IV Hypoglycemia 07/05/17 07:00 08/04/17 06:59 Dextrose/Sodium Chloride 1,000 ml @ 75 mls/hr [id number] IV 07/05/17 17:40 08/04/17 17:39 07/07/17 09:16 Diphenhydramine HCl (Benadryl) 25 mg Q6H PRN ORAL Itching/Pruritis 07/05/17 07:00 08/04/17 06:59 Heparin Sodium (Porcine) (Heparin 5000 units/ml) 5,000 units EVERY 12 HOURS SUBQ 07/05/17 09:00 08/04/17 08:59 07/07/17 09:14 Ibuprofen (Advil) 400 mg Q8HR PRN ORAL For Pain 07/05/17 07:00 08/04/17 06:59 07/05/17 23:21 Morphine Sulfate (Morphine Sulfate) 2 mg EVERY 4 HOURS PRN IVP severe Pain (Pain Scale 4-6) 07/05/17 07:00 07/12/17 06:59 Morphine Sulfate (Morphine Sulfate) 4 mg EVERY 2 HOURS PRN IV For Pain (7-10) 07/05/17 07:00 07/12/17 06:59 Nitroglycerin (Ntg) 0.4 mg Q5M X 3 DOSES PRN SL Prn Chest Pain 07/05/17 07:00 08/04/17 06:59 Ondansetron HCl (Zofran) 4 mg Q6H PRN IVP Nausea & Vomiting 07/05/17 07:00 08/04/17 06:59 Polyethylene Glycol (Miralax) 17 gm HSPRN PRN ORAL Constipation 07/05/17 07:00 08/04/17 06:59 Temazepam (Restoril) 15 mg HSPRN PRN ORAL Insomnia 07/05/17 07:00 07/12/17 06:59 Crispin Graf M.D. Jul 07, 2017 15:04
[2017-07-07] MEDS ORDERED: NORVASC5 MG ORAL (16:03)
--- NOTE | 2017-07-07 16:25 | Pulmonology Progress Note ---
Assessment/Plan Problems: (1) Staghorn kidney stones (2) Pyelonephritis Assessment/Plan improving cultures pending urology called urology cleared for dc Subjective ROS Limited/Unobtainable: No Constitutional: Reports: no symptoms HEENT: Repors: no symptoms Respiratory: Reports: no symptoms Allergies: Coded Allergies: NO KNOWN ALLERGIES (Unverified Allergy, Unknown, 10/24/15) Objective Last 24 Hour Vital Signs Date Time Temp Pulse Resp B/P (MAP) Pulse Ox O2 Delivery O2 Flow Rate FiO2 07/07/17 12:00 97.9 86 20 151/89 100 Room Air 07/07/17 09:14 71 133/92 07/07/17 08:00 98.1 71 18 133/92 100 Room Air 07/07/17 04:00 97.9 65 18 137/86 100 Room Air 07/07/17 00:01 98.1 54 19 149/84 100 Room Air 07/06/17 20:50 65 148/79 07/06/17 20:39 97.9 65 18 148/79 100 Room Air Intake and Output 07/07/17 07/08/17 19:00 07:00 # Bowel Movements 2 General Appearance: WD/WN HEENT: normocephalic, anicteric Respiratory/Chest: chest wall non-tender, lungs clear Breasts: no masses Cardiovascular: normal peripheral pulses Abdomen: normal bowel sounds, soft, non tender, no mass Extremities: no cyanosis Skin: no rash Neurologic/Psychiatric: retail agent II-XII grossly normal Microbiology Date/Time Source Procedure Growth Status 07/05/17 22:50 Blood Blood Culture - Preliminary NO GROWTH AFTER 24 HOURS Resulted 07/05/17 22:45 Blood Blood Culture - Preliminary NO GROWTH AFTER 24 HOURS Resulted 07/05/17 09:11 Straight Cath Urine Culture - Preliminary NO GROWTH AFTER 24 HOURS Resulted 07/04/17 22:00 Urine,Clean Catch Urine Culture - Preliminary Resulted Current Medications Medications (Trade) Dose Ordered Sig/Richard Route PRN Reason Start Time Stop Time Status Last Admin Dose Admin Acetaminophen (Tylenol) 650 mg Q4H PRN ORAL fever 07/05/17 07:00 08/04/17 06:59 Al Hydroxide/Mg Hydroxide (Mylanta II) 30 ml Q6H PRN ORAL dyspepsia 07/05/17 07:00 08/04/17 06:59 Amlodipine Besylate (Norvasc) 5 mg EVERY 12 HOURS ORAL 07/06/17 15:00 08/05/17 14:59 07/07/17 09:14 Ceftriaxone Sodium 1 gm/ Dextrose 55 ml @ 110 mls/hr Q24H IVPB 07/05/17 09:00 07/12/17 08:59 07/07/17 09:16 Clonidine HCl (Catapres) 0.1 mg Q4H PRN ORAL For High Blood Pressure 07/06/17 07:00 08/05/17 06:59 07/06/17 13:28 Dextrose (Dextrose 50%) STAT PRN IV Hypoglycemia 07/05/17 07:00 08/04/17 06:59 Dextrose/Sodium Chloride 1,000 ml @ 75 mls/hr [id number] IV 07/05/17 17:40 08/04/17 17:39 07/07/17 09:16 Diphenhydramine HCl (Benadryl) 25 mg Q6H PRN ORAL Itching/Pruritis 07/05/17 07:00 08/04/17 06:59 Heparin Sodium (Porcine) (Heparin 5000 units/ml) 5,000 units EVERY 12 HOURS SUBQ 07/05/17 09:00 08/04/17 08:59 07/07/17 09:14 Ibuprofen (Advil) 400 mg Q8HR PRN ORAL For Pain 07/05/17 07:00 08/04/17 06:59 07/05/17 23:21 Morphine Sulfate (Morphine Sulfate) 2 mg EVERY 4 HOURS PRN IVP severe Pain (Pain Scale 4-6) 07/05/17 07:00 07/12/17 06:59 Morphine Sulfate (Morphine Sulfate) 4 mg EVERY 2 HOURS PRN IV For Pain (7-10) 07/05/17 07:00 07/12/17 06:59 Nitroglycerin (Ntg) 0.4 mg Q5M X 3 DOSES PRN SL Prn Chest Pain 07/05/17 07:00 08/04/17 06:59 Ondansetron HCl (Zofran) 4 mg Q6H PRN IVP Nausea & Vomiting 07/05/17 07:00 08/04/17 06:59 Polyethylene Glycol (Miralax) 17 gm HSPRN PRN ORAL Constipation 8/29/17 07:00 08/04/17 06:59 Temazepam (Restoril) 15 mg HSPRN PRN ORAL Insomnia 07/05/17 07:00 07/12/17 06:59 MARK HUITRON Jul 07, 2017 16:25
[2017-07-07] MEDS ORDERED: D5 1/2NS 1000ml IV ONE (17:01)
--- NOTE | 2017-07-07 18:00 | Consultation ---
History of Present Illness General Date patient seen: Jul 07, 2017 Time patient seen: 16:00 Chief Complaint: Back Pain-No Injury Referring physician: km Reason for Consultation: left staghorn calculi Present Illness HPI 42 yo female with known large left staghorn calculus. Being discharged today after adequate treatment for left pyelonephritis. Feeling better. Did not seek further treatment after last admission 2 years ago. Allergies: Coded Allergies: NO KNOWN ALLERGIES (Unverified Allergy, Unknown, 10/24/15) Medication History Scheduled Amlodipine Besylate (Norvasc), 5 MG ORAL DAILY, (Reported) Levofloxacin* (Levaquin*), 500 MG ORAL DAILY Trimethoprim/Sulfamethoxazole 160/800* (Bactrim Ds Tablet*), 1 TAB ORAL TWICE A DAY Scheduled PRN Ibuprofen* (Motrin*), 400 MG ORAL Q8HR PRN for For Pain, (Reported) Patient History History Provided By: Patient, Medical Record Healthcare decision maker Resuscitation status Full Code Advanced Directive on File Past Medical/Surgical History Past Medical/Surgical History: (1) Kidney stone (2) Pyelonephritis Review of Systems Constitutional: Denies: no symptoms, see HPI, chills, sweats, fever, malaise, weakness, other Eye: Denies: no symptoms, see HPI, eye pain, blurred vision, tearing, double vision, nose pain, nose congestion, acuity changes, discharge, other ENT: Denies: no symptoms, see HPI, ear pain, ear discharge, nose pain, nose congestion, throat pain, throat swelling, mouth pain, hearing loss, nasal discharge, other Respiratory: Denies: no symptoms, see HPI, cough, orthopnea, shortness of breath, stridor, wheezing, MCCRARY, sputum, other Cardiovascular: Denies: no symptoms, see HPI, chest pain, edema, palpitations, syncope, PND, other Gastrointestinal: Reports: abdominal pain Genitourinary: Denies: no symptoms, see HPI, discharge, dysuria, frequency, hematuria, pain, retention, incontinence, urgency, vag bleed/dc, other Musculoskeletal: Denies: no symptoms, see HPI, back pain, gout, joint pain, joint swelling, muscle pain, muscle stiffness, other Skin: Denies: no symptoms, see HPI, rash, change in color, change in hair/nails , dryness, lesions, other Psychiatric: Denies: no symptoms, see HPI, prior hx, anxiety, depressed feelings, emotional problems, SI, HI, hallucinations, other Neurological: Denies: no symptoms, see HPI, headache, numbness, paresthesia, seizure, tingling, tremors, focal weakness, syncope, dizziness, other Endocrine: Denies: no symptoms, see HPI, excessive sweating, flushing, intolerance to temperature, increased thirst, increased urine, unexplained weight loss, other Hematologic/Lymphatic: Denies: no symptoms, see HPI, anemia, blood clots, easy bleeding, easy bruising, swollen glands, diathesis, other Physical Exam General Appearance: no apparent distress Cardiovascular/Chest: normal rate Abdomen: non tender, soft Last 24 Hour Vital Signs Date Time Temp Pulse Resp B/P (MAP) Pulse Ox O2 Delivery O2 Flow Rate FiO2 07/07/17 12:00 97.9 86 20 151/89 100 Room Air 07/07/17 09:14 71 133/92 07/07/17 08:00 98.1 71 18 133/92 100 Room Air 07/07/17 04:00 97.9 65 18 137/86 100 Room Air 07/07/17 00:01 98.1 54 19 149/84 100 Room Air 07/06/17 20:50 65 148/79 07/06/17 20:39 97.9 65 18 148/79 100 Room Air Intake and Output 07/07/17 07/08/17 19:00 07:00 # Bowel Movements 2 Height (Feet): 5 Height (Inches): 4.00 Weight (Pounds): 115 Assessment/Plan Status: stable Assessment/Plan 42 yo female with left large staghorn calculus. Given size, saving left kidney seems difficult. More likely benefit from simple nephrectomy at this point. Recommend treating current bout of pyelonephritis. If patient wants to attempt to save kidney, recommend referral to higher level of care for complex percutaneous stone surgery. 1. recommend abx for pyelonephritis 2. referral to higher level of care for kidney sparing stone surgery. Jerome Maria M.D. Jul 07, 2017 18:00
--- NOTE | 2017-07-08 15:03 | Discharge Summary ---
Discharge Summary Hospital Course Date of Admission Jul 05, 2017 at 01:47 Date of Discharge Jul 07, 2017 at 17:02 Admitting Diagnosis Infected kidney stone. Pyelonephritis HPI T González Vaughn is a 42 year old female who was admitted on Jul 05, 2017 at 01 :47 for Infected Kidney Stone,Pyelonephritis Hospital Course [id number] Discharge Discharge Disposition Patient was discharged to Home () Discharge Diagnoses: Gwendolyn Kumar NP Jul 08, 2017 15:03
--- NOTE | 2017-07-09 05:15 | Discharge Summary 2 SIG ---
DATE OF ADMISSION: 07/05/2017 DATE OF DISCHARGE: 07/07/2017 CONSULTANTS: 1. Haim Wilkinson M.D. 2. Jerome Maria M.D. BRIEF HOSPITAL COURSE: The patient is a 42-year-old female with history of staghorn calculus, presented to ED complaining of left flank pain for the last two weeks that has gotten worse over the last couple of days with reports of subjective fever and nausea, but no vomiting. The pain was worse with urination. On evaluation at ED, CT of the abdomen and pelvis showed a large 7.5 staghorn calculus in the left renal collecting system with changes consistent with pyelonephritis. She was then admitted to medical floor for IV antibiotic management and was given IV Rocephin. UA showed 60 to 80 WBCs and 10 to 15 RBC. Creatinine was 1.2. She was seen by urologist and on assessment, given the size of kidney stone, the patient would benefit from simple nephrectomy. She was recommended to finish treatment for pyelonephritis and recommended referral to higher level of care for complex percutaneous stone surgery. Urine culture was negative. Blood culture did not isolate any growth. She was then cleared for discharge to continue Bactrim DS b.i.d. to complete 14 days of treatment. She was advised the need for urgent Urology consultation and she will need outpatient followup for renal scan and possible nephrectomy. FINAL DIAGNOSES: 1. Acute pyelonephritis secondary to staghorn kidney stones. 2. Urinary tract infection secondary to kidney stone. 3. History of multiple urinary tract infections. DISPOSITION: The patient was discharged home. Follow up with Urology as outpatient. DISCHARGE MEDICATIONS: Refer to med list. ACTIVITY: As tolerated. Katerina Miranda M.D. I have been assigned to dictate discharge summary on this account and I was not involved in the patient's management. Gwendolyn Kumar N.P. DR: ALVIN JOB#: [id number] CC:
[2017-07-09 11:51] LABS: OTHERS PATHOLOGIST COMMENT
== END 2017-07-07 17:02 | disposition home or self-care (01) | DRG 465 ==
LOC: EMR 22:25 → EDBEDREQ 07-05 01:38 → 4E 07-05 01:47 → EDBEDREQ 07-05 01:53
DX: N20.0 Calculus of kidney (principal); N10 Acute pyelonephritis; D64.9 Anemia, unspecified; Z87.440 Personal history of urinary (tract) infections
CPT/HCPCS: 36415; 74176; 80053; 80300; 81001; 81003; 81025; 82150; 83690; 85007; 85025; 85610; 85730; 87040; 87086; 87181; 99285; J2405

== ENCOUNTER 2017-08-11 22:36 | Emergency (ER) | payer SELFPAY ==
[~2017-08-11] VITALS: Ht 165.1 cm; Wt 49.9 kg
[~2017-08-11 22:36] MED LIST changes: +BACTRIM DS TAB1 EAC1 ORAL; +IBUPROFEN600 MG ORAL; +NORVASC5 MG ORAL
[2017-08-11 23:00] VITALS: BP 145/79
[2017-08-11] MEDS ORDERED: Ketorolac 30mg Inj IV ONE (23:15)
[2017-08-11] MEDS: Morphine Sulfate 2mg/ml Inj IVP ONE ×2 (23:15→23:49)
[2017-08-11 23:53] LABS: EOSINOPHILS % (AUTO) 1.8 % (0.0-3.0); LYMPHOCYTES % (AUTO) 34.8 % (20.0-45.0); MEAN CORPUSCULAR HEMOGLOBIN 26.4 PG (27.0-31.0); MEAN CORPUSCULAR HGB CONC 32.3 G/DL (32.0-36.0); MEAN CORPUSCULAR VOLUME 82 FL (80-99); MEAN PLATELET VOLUME 6.6 FL (6.5-10.1); MONOCYTES % (AUTO) 11.6 % (1.0-10.0); NEUTROPHILS % (AUTO) 50.7 % (45.0-75.0); PLATELET COUNT 271 K/UL (150-450); RED BLOOD COUNT 4.21 M/UL (4.20-5.40); RED CELL DISTRIBUTION WIDTH 16.4 % (11.6-14.8); WHITE BLOOD COUNT 6.5 K/UL (4.8-10.8)
[2017-08-12 00:09] LABS: APPEARANCE,URINE CLOUDY; KETONES,URINE NEGATIVE (NEGATIVE); LEUKOCYTE ESTERASE ,URINE 3+ (NEGATIVE); NITRITE,URINE NEGATIVE (NEGATIVE); PH,URINE 8 (4.5-8.0); PROTEIN,URINE 1+ (NEGATIVE); UROBILINOGEN,URINE NORMAL MG/DL (0.0-1.0)
[2017-08-12 00:16] LABS: ALANINE AMINOTRANSFERASE 7 U/L (3-33); ALBUMIN/GLOBULIN RATIO 1.2 (1.0-2.7); ANION GAP 11 (5-15); ASPARTATE AMINO TRANSFERASE 16 U/L (5-40); CALCIUM 9.5 mg/dL (8.6-10.2); CARBON DIOXIDE 28 mEQ/L (20-30); CHLORIDE 102 mEQ/L (98-107); CREATININE 0.9 mg/dL (0.5-0.9); GLOMERULAR FILTRATION RATE > 60 mL/min (>60); HEMOLYSIS 1; POTASSIUM 4.2 mEQ/L (3.4-4.9); SODIUM 141 mEQ/L (135-145)
[2017-08-12 00:24] LABS: TROPONIN I < 0.30 ng/mL (<=0.30)
[2017-08-12 00:31] LABS: BACTERIA,URINE MANY /HPF; SQUAMOUS EPITHELIAL CELL,UR FEW /LPF (NONE/OCC); WBC,URINE 60-80 /HPF (0 - 2)
[2017-08-12 01:05] VITALS: BP 137/81
[2017-08-12 01:36] LABS: URIC ACID 3.6 mg/dL (3.0-7.5)
--- NOTE | 2017-08-12 01:53 | Emergency Room Report ---
History of Present Illness General Chief Complaint: Upper Extremity Injury Source: Patient Present Illness HPI Patient presents with 4-5 days of severe right shoulder pain. Every time she moves her arm there is pain. When she tries to lift her hand up there's pain. Denies any fevers or warmth. The pain radiates down her arm and she's feels as though her whole upper arm is tender. Denies any cough or exertional dyspnea. Never had this before. She's tried taking Tylenol and hasn't helped very much. She denies any trauma. She is right-handed she works with her right hand. No URI sy, NVD, dysuria, rashes. No h/o arthritis or gout. Allergies: Coded Allergies: NO KNOWN ALLERGIES (Unverified Allergy, Unknown, 10/24/15) Patient History Past Medical History: see triage record Social History Narrative Works at the [employer]. She is an firewall security engineer Last Menstrual Period: a week ago Now: No Reviewed Nursing Documentation: PMH: Agreed, PSxH: Agreed Nursing Documentation-PMH Hx Hypertension: Yes Hx Cancer: No Hx Gastrointestinal Problems: No Hx Neurological Problems: No Review of Systems All Other Systems: negative except mentioned in HPI Physical Exam Vital Signs Date Time Temp Pulse Resp B/P (MAP) Pulse Ox O2 Delivery O2 Flow Rate FiO2 08/11/17 22:41 97.9 76 18 145/79 100 Room Air Sp02 EP Interpretation: reviewed, normal General Appearance: well appearing, no apparent distress Head: normocephalic, atraumatic Eyes: bilateral eye normal inspection, bilateral eye PERRL ENT: hearing grossly normal, normal voice, moist mucus membranes Neck: full range of motion, supple, no bony tend, supple/symm/no masses Respiratory: chest non-tender, lungs clear, normal breath sounds, no respiratory distress, speaking full sentences Cardiovascular #1: regular rate, rhythm Cardiovascular #2: 2+ radial (R) Gastrointestinal: normal inspection, scaphoid Musculoskeletal: digits/nails normal, decreased range of mation - R shoulder, other - TTP R shoulder - no crepetance, PROM fair, but tender. Neurologic: alert, oriented x3, motor strength/tone normal, DTRs symmetric, sensory intact, normal gait, other - RUM nerves normal in hand Psychiatric: mood/affect normal Skin: no rash Medical Decision Making Diagnostic Impression: Primary Impression: Calcific tendinitis Additional Impression: UTI (urinary tract infection) Qualified Codes: N30.00 - Acute cystitis without hematuria ER Course Patient with atraumatic R shoulder pain. Ddx: tendonitis, bursitis, gout amongst others. No evidence of septic joint. Xrays indicated along with analgesics. Xray with calcific tendonitis. Sling applied by tech. Position is excellent and neurovasc normal as checked by me. Patient is improved and stable for outpatient observation and treatment. NB - urine returned after patient had departed. Other X-Ray Diagnostic Results Other X-Ray Diagnostic Results : X-Ray ordered: Right shoulder # of Views/Limited Vs Complete: 3 View Indication: Pain EP Interpretation: Yes Interpretation: no dislocation, no soft tissue swelling, no fractures, other - calcific tendinitis Impression: Other Electronically Signed by: Electronically signed by Mark Solomon MD Last Vital Signs Date Time Temp Pulse Resp B/P (MAP) Pulse Ox O2 Delivery O2 Flow Rate FiO2 08/12/17 02:05 97.9 82 16 137/81 100 Room Air Status: improved Disposition: HOME, SELF-CARE Condition: Improved Scripts Ibuprofen* (MOTRIN*) 600 Mg Tablet 600 MG ORAL Q6H Y for For Pain, #20 TAB Prov: Mark Solomon M.D. 08/12/17 Tramadol Hcl* (ULTRAM*) 50 Mg Tablet 50 MG ORAL Q6H Y for For Pain, #14 TAB 0 Refills Prov: Mark Solomon M.D. 08/12/17 Referrals: NOT CHOSEN [facility]/,REFERRING (PCP) Mark Solomon M.D. Aug 12, 2017 01:53
[2017-08-12] MEDS ORDERED: TRAMADOL HCL50 MG ORAL (01:59)
[2017-08-12] MEDS ORDERED: IBUPROFEN600 MG ORAL (01:59)
[2017-08-12 02:05] VITALS: BP 137/81
--- NOTE | 2017-08-12 10:17 | Diagnostic Imaging Report ---
Indication: Pain Findings: 3 views of the right shoulder were obtained. Extensive calcification noted within the distal part of the supraspinatus tendon. Glenohumeral joint is normal. There is no fracture or malalignment. Impression: Calcific tendinopathy of the rotator cuff
[2017-08-13] MEDS ORDERED: NITROFURANTOIN100 M2 ORAL (16:16)
== END 2017-08-12 02:07 | disposition home or self-care (01) ==
LOC: EMR 23:15
DX: M75.31 Calcific tendinitis of right shoulder (principal); N39.0 Urinary tract infection, site not specified; I10 Essential (primary) hypertension
CPT/HCPCS: 36415; 73030; 80053; 80300; 81003; 81025; 82550; 84484; 84550; 85025; 87086; 87181; 96374; 96375; 99284; J1885; J2405

== ENCOUNTER 2021-01-28 20:43 | Emergency (ER) | payer SELFPAY ==
[~2021-01-28] VITALS: Ht 167.6 cm; Wt 52.2 kg
[~2021-01-28 20:43] MED LIST changes: +NITROFURANTOIN100 M2 ORAL; +TRAMADOL HCL50 MG ORAL
--- NOTE | 2021-01-28 20:54 | NUR ---
Pt reports L arm pain that began x5 days ago when she woke up. Pain has not subsided since that time and reports pressure and heaviness. Pt reports no previous medical Hx at this time aside from previous kidney stones x2 years ago. Pt has no focal numbness or tingling on BUE.
[2021-01-28 21:07] VITALS: BP 160/75
[2021-01-28 21:37] LABS: BASOPHILS % (AUTO) 1.3 % (0.0-2.0); EOSINOPHILS % (AUTO) 2.4 % (0.0-3.0); HEMATOCRIT 37.3 % (37.0-47.0); HEMOGLOBIN 12.8 G/DL (12.0-16.0); LYMPHOCYTES % (AUTO) 49.1 % (20.0-45.0); MEAN CORPUSCULAR VOLUME 82 FL (80-99); NEUTROPHILS % (AUTO) 35.2 % (45.0-75.0); PLATELET COUNT 285 K/UL (150-450); RED BLOOD COUNT 4.54 M/UL (4.20-5.40); RED CELL DISTRIBUTION WIDTH 16.3 % (11.6-14.8); WHITE BLOOD COUNT 5.5 K/UL (4.8-10.8)
--- NOTE | 2021-01-28 21:38 | NUR ---
Patient in bed in comfortable position and stable condition. All vitals signs were taken within normal range. Urine and blood were collected and sent them to the lab. Patient continuous attached to the monitor
[2021-01-28 21:55] LABS: ALBUMIN/GLOBULIN RATIO 0.9 (1.0-2.7); BILIRUBIN,TOTAL 0.4 MG/DL (0.2-1.0); CALCIUM 9.7 MG/DL (8.5-10.1); CREATININE 1.2 MG/DL (0.55-1.30); POTASSIUM 3.5 MMOL/L (3.5-5.1)
--- NOTE | 2021-01-28 21:56 | Emergency Room Report ---
History of Present Illness General Chief Complaint: Upper Extremity Injury Source: Patient Present Illness HPI The patient states that for the past 5 days she has had a "heavy" feeling in her left arm. She states it does feel "weak." She denies tingling or numbness. She denies trauma or injury. She denies chest pain or shortness of breath. She denies neck pain. She states she does get pain shooting down her arm when she puts the arm in a specific position. She states she can use the arm but it feels "heavy." She denies headache. She denies recent illness. She denies fever chills. 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 She has no other complaints. Allergies: Coded Allergies: NO KNOWN ALLERGIES (Unverified Allergy, Unknown, 10/24/15) COVID-19 Screening Contact w/high risk pt: No Experienced COVID-19 symptoms?: No COVID-19 Testing performed TRAVEL AGENCY MANAGER: No Patient History Past Medical History: see triage record, HTN, other - kidney stones Past Surgical History: - x2 Social History: Reports: smoking; Denies: alcohol use, drug use Last Menstrual Period: Today Now: No Reviewed Nursing Documentation: PMH: Agreed; PSxH: Agreed Nursing Documentation-PMH Hx Hypertension: Yes Hx Cancer: No Hx Gastrointestinal Problems: No Hx Neurological Problems: No Review of Systems All Other Systems: negative except mentioned in HPI Physical Exam Vital Signs Date Time Temp Pulse Resp B/P (MAP) Pulse Ox O2 Delivery O2 Flow Rate FiO2 01/28/21 20:47 98.2 74 16 163/75 (104) 96 Room Air Sp02 EP Interpretation: reviewed, normal General Appearance: no apparent distress, alert, GCS 15, non-toxic Head: normocephalic, atraumatic Eyes: bilateral eye normal inspection ENT: hearing grossly normal, normal pharynx, no angioedema, normal voice Neck: normal inspection, full range of motion, supple, supple/symm/no masses Respiratory: no respiratory distress, no retraction, no accessory muscle use, speaking full sentences Cardiovascular #1: regular rate, rhythm, no edema Gastrointestinal: normal inspection Rectal: deferred Musculoskeletal: back normal, normal range of motion, gait/station normal, tender - LUE. TTP at the supraspinatus tendon/rotator cuff superiorly on the L. shoulder with +pain that radiates down the L. arm. +arc of pain with lateral flexion 60 degrees to 120 of abduction. Neurologic: alert, motor strength/tone normal, oriented x3, sensory intact, responsive, speech normal Psychiatric: judgement/insight normal, memory normal, mood/affect normal, no suicidal/homicidal ideation Skin: no rash, normal color Medical Decision Making Diagnostic Impression: Primary Impression: Subacromial impingement of left shoulder ER Course This patient has findings on exam consistent with subacromial impingement syndrome of the left shoulder. This is based on the physical exam. She has a classic findings of the arc of pain and is tender to palpation at that location. Overall, the patient neuro exam is benign. There are no red flags that would make me concerned for a cervical or intracranial lesion causing these symptoms. As a precaution, given that "heavy sensation" I did go ahead and obtain a chest pain work-up. However, this chest pain work-up was unremarkable. Given the length of symptoms, this workup is very reassuring with negative cardiac enzymes, normal EKG, and normal chest x-ray. The patient is low risk and his symptoms are atypical for acute coronary syndrome. I have very low suspicion for PE, aortic dissection or pneumothorax based on history/physical, laboratory and radiologic workup. The patient was instructed to follow-up closely with orthopedics/Workmen's Comp. She was given a sling for comfort. She was educated on the risk of frozen shoulder and that she should continue moving her shoulder and that she is given the sling. At this time, I did not identify an emergency medical condition. The patient was given close return precautions and followup instructions. Laboratory Tests Test 01/28/21 21:30 White Blood Count 5.5 K/UL (4.8-10.8) Red Blood Count 4.54 M/UL (4.20-5.40) Hemoglobin 12.8 G/DL (12.0-16.0) Hematocrit 37.3 % (37.0-47.0) Mean Corpuscular Volume 82 FL (80-99) Mean Corpuscular Hemoglobin 28.3 PG (27.0-31.0) Mean Corpuscular Hemoglobin Concent 34.4 G/DL (32.0-36.0) Red Cell Distribution Width 16.3 % (11.6-14.8) H Platelet Count 285 K/UL (150-450) Mean Platelet Volume 7.1 FL (6.5-10.1) Neutrophils (%) (Auto) 35.2 % (45.0-75.0) L Lymphocytes (%) (Auto) 49.1 % (20.0-45.0) H Monocytes (%) (Auto) 12.0 % (1.0-10.0) H Eosinophils (%) (Auto) 2.4 % (0.0-3.0) Basophils (%) (Auto) 1.3 % (0.0-2.0) Sodium Level 143 MMOL/L (136-145) Potassium Level 3.5 MMOL/L (3.5-5.1) Chloride Level 105 MMOL/L (98-107) Carbon Dioxide Level 29 MMOL/L (21-32) Anion Gap 9 mmol/L (5-15) Blood Urea Nitrogen 15 mg/dL (7-18) Creatinine 1.2 MG/DL (0.55-1.30) Estimated Glomerular Filtration Rate 58.7 mL/min (>60) Glucose Level 93 MG/DL (74-106) Calcium Level 9.7 MG/DL (8.5-10.1) Total Bilirubin 0.4 MG/DL (0.2-1.0) Aspartate Amino Transferase (AST) 17 U/L (15-37) Alanine Aminotransferase (ALT) 16 U/L (12-78) Alkaline Phosphatase 91 U/L (46-116) Troponin I 0.000 ng/mL (0.000-0.056) Total Protein 8.4 G/DL (6.4-8.2) H Albumin 4.0 G/DL (3.4-5.0) Globulin 4.4 g/dL Albumin/Globulin Ratio 0.9 (1.0-2.7) L EKG Diagnostic Results Rate: normal Rhythm: NSR ST Segments: other - Q waves in leads V1, V2 Rhythm Strip Diag. Results EP Interpretation: yes Rate: 70's Rhythm: NSR, no PVC's, no ectopy Chest X-Ray Diagnostic Results Chest X-Ray Diagnostic Results : Chest X-Ray Ordered: Yes # of Views/Limited/Complete: 1 View Indication: Other EP Interpretation: Yes Interpretation: no consolidation, no effusion, no pneumothorax, no acute cardiopulmonary disease Impression: No acute disease Other X-Ray Diagnostic Results Other X-Ray Diagnostic Results : X-Ray ordered: L. shoulder xray # of Views/Limited Vs Complete: Complete Indication: Pain EP Interpretation: Yes Interpretation: no dislocation, no fractures Impression: No acute disease Electronically Signed by: Jen Silver DO Last Vital Signs Date Time Temp Pulse Resp B/P (MAP) Pulse Ox O2 Delivery O2 Flow Rate FiO2 01/28/21 21:07 97.4 78 17 160/75 97 Room Air Status: improved Disposition: HOME, SELF-CARE Condition: Improved Referrals: NOT CHOSEN [facility]/,REFERRING (PCP) Jen Silver DO Jan 28, 2021 21:55
[2021-01-28 22:29] VITALS: BP 130/89
--- NOTE | 2021-01-28 22:31 | NUR ---
Patient was discharge home as EDP ordered. All vital signs were taken within normal range. Patient . All prescriptions and instructions were given to the patient . Patient verbalized understanding. patient left the hospital in stable condition .
--- NOTE | 2021-01-29 12:05 | Diagnostic Imaging Report ---
Indication: Chest pain Technique: XRAY Chest 1v Comparison: None Findings: Heart size and mediastinal contours are within normal limits for AP technique. There is no focal airspace consolidation, pneumothorax or pleural effusion. Osseous structures demonstrate no acute abnormality. Impression: No radiographic evidence of acute cardiopulmonary disease.
--- NOTE | 2021-01-29 12:17 | Diagnostic Imaging Report ---
Indication: Left shoulder pain. Technique: 3 views of the left shoulder Comparison: None Findings: Bony mineralization within normal limits. No acute fracture seen. Glenohumeral and acromioclavicular joints are maintained, without evidence of dislocation. The images portions of the left lung clear. IMPRESSION: No acute fracture or dislocation.
== END 2021-01-28 22:31 | disposition home or self-care (01) ==
LOC: EMR 21:21
DX: M75.42 Impingement syndrome of left shoulder (principal); I10 Essential (primary) hypertension
CPT/HCPCS: 36415; 71045; 80053; 84484; 85025; 93005; 99284